=== PATIENT | male | born 1995 | race Caucasian/White ===

== ENCOUNTER 2022-03-28 11:18 | Inpatient (IN) ==
[2022-03-28] MEDS ORDERED: IOPAMIDOL 100 ML BOTTLE IV ONE (11:19)
[2022-03-28] MEDS ORDERED: 0.9 % SODIUM CHLORIDE 1,000 ML IV ONE ×2 (11:31→12:56)
[2022-03-28 11:41] LABS: POC Calcium, Ionized 1.19 (1.16-1.32); POC Creatinine 1.7 (0.6-1.2); POC Potassium 4.2 (3.3-5.1)
--- NOTE | 2022-03-28 11:48 | Emergency Department Note ---
HPI General Chief complaint: Blood Pressure Problem Stated complaint: fentanyl withdrawal Time Seen by Provider: 03/28/22 11:30 Source: patient Mode of arrival: ambulatory Limitations: no limitations History of Present Illness HPI Narrative: Narrative: Patient presents to ED in police custody for concerns about low blood pressure. Patient was arrested earlier this week and is admitted fentanyl user. He has not had any fentanyl since being arrested. They believe he is going through withdrawal. Patient has had diarrhea and chills. They state that they took his blood pressure today and it was in the 80s systolically with a heart rate of 145 so they brought him to the ED to be evaluated. Patient that he just does not feel well. Does not know what is wrong. He states he did not think that fentanyl can do this to him in withdrawal. He reports feeling nauseous and having vomiting. He reports having too numerous to count diarrhea bowel movements. He denies hematemesis, melena, medic easier, abdominal pain, dysuria, hematuria, urinary frequency. Patient denies any other alleviating or aggravating factors. Related Data Allergies Allergy/AdvReac Type Severity Reaction Status Date / Time No Known Drug Allergies Allergy Verified 03/28/22 11:23 Review of Systems ROS ROS Narrative: Narrative: All systems ED: reviewed and negative except as stated. [facility] Narrative Patient History Narrative: Narrative: Medical/Surgical/Family History All Active Problems (Updated 03/28/22 @ 17:11 by Milton Kelly MD) Anemia, normocytic normochromic (Acute) Aspiration pneumonia (Acute) Methamphetamine abuse (Acute) Stage 1 acute kidney injury (Acute) Encounter for medication refill (Acute) Acute dehydration (Acute) Acute kidney injury (Acute) Drug withdrawal (Acute) Sepsis (Acute) Pneumonia involving right lung (Acute) Medical History (Updated 03/28/22 @ 17:11 by Milton Kelly MD) Encounter for medication refill Social History Smoking Status: Current every day smoker Exam Narrative Narrative: Narrative: General Limitations: no limitations General appearance: Present alert Chest Chest: Present normal inspection; Absent tenderness Respiratory Respiratory: Present normal lung sounds bilaterally; Absent respiratory distress Cardiovascular Cardiovascular: Present regular rate and normal rhythm Adbominal Abdominal: Present soft and normal bowel sounds; Absent tenderness Neurological Neurological: Present oriented X3 and normal gait Psychiatric Psychiatric: Present flat affect and poor eye contact Skin Skin: Present warm (WNL) and intact Course Course Course Narrative: Patient was evaluated for low blood pressure and tachycardic. Patient arrived his blood pressure was in the 90s systolically and he was slightly tachycardic. Patient clinically looked dry. He was bolused IV fluids x2 L. His blood pressure improved up to 120 systolically and his heart rate came down below 100. Labs show that patient had acute kidney injury with elevated BUN and creatinine suggestive of dehydration. He could not provide us a stool sample and had no d iarrhea bowel movement while he was here. UA was unremarkable. Repeat creatinine showed improvement after the fluids. Patient's heart rate continued to be tachycardic so chest x-ray was obtained with image reviewed myself which revealed concern for right-sided pneumonia. Patient's white cell count was also elevated his procalcitonin was extremely elevated. CT of the chest was obtained and showed that patient had extensive pneumonia in his right upper middle and lower lung. Patient does meet sepsis criteria with tachycardia, leukocytosis and source of infection. Blood cultures were obtained and patient was given IV Zosyn and vancomycin. Patient's blood pressure was initially doing much better but then started dropping again as low as upper 80s systolically. Recommend that patient be admitted to hospitalist service for sepsis secondary to pneumonia. Patient also has acute kidney injury. See mention but that did improve with the fluids. Unfortunate lactic acid was not obtained prior to fluids being administered. Case discussed with hospitalist Who was agreed to admit the patient. Reevaluation(s) Reevaluation #1: Patient remains hemodynamically stable. No new complaints at this time Time: 12:45 Consultations Consultation #1: Case discussed with hospitalist who has agreed to admit the patient. Time: 16:35 Vital Signs Vital signs: Vital Signs Temperature 97.1 F 03/28/22 11:19 Pulse Rate 101 H 03/28/22 11:19 Respiratory Rate 20 03/28/22 11:19 Blood Pressure 104/66 03/28/22 11:19 Pulse Oximetry (%) 97 03/28/22 11:19 Oxygen Delivery Method 03/28/22 11:19 Temperature 101.3 F H 03/28/22 17:54 Pulse Rate 93 H 03/28/22 17:54 Respiratory Rate 14 03/28/22 17:54 Blood Pressure 112/76 03/28/22 17:54 Pulse Oximetry (%) 93 03/28/22 17:54 Oxygen Delivery Method 03/28/22 17:54 MDM MDM Narrative Medical decision making narrative: Narrative: Differential Diagnosis Differential Diagnosis: Dehydration, fentanyl withdrawal, viral illness Medical Records Medical records reviewed: Yes I reviewed the patient's medical records. Lab Data Lab results reviewed: Yes I reviewed the patient's lab results. Result diagrams: 03/28/22 11:37 Labs: Lab Results 03/28/22 03/28/22 03/28/22 Range/Units 11:37 11:38 13:26 WBC 13.8 H (4.5-11.0) K/mcL RBC 4.22 L (4.63-6.08) M/mcL Hgb 12.4 L (13.7-17.5) g/dL Hct 36.5 L (40.1-51.0) % POC Hct 40.0 L (41-55) MCV 86.5 (80.0-100.0) fL MCH 29.4 (26.0-34.0) pg MCHC 34.0 (31.0-36.0) g/dL RDW 11.9 (11.5-14.5) % Plt Count 259 (140-440) K/mcL MPV 10.3 (8.8-12.5) fL Immature Gran % (Auto) 1.5 H (0.0-0.5) % Neut % (Auto) 92.2 H (38.0-78.0) % Lymph % (Auto) 3.7 L (15.5-49.0) % [place] % (Auto) 1.9 (1.0-12.0) % Eos % (Auto) 0.1 (0.0-7.0) % Baso % (Auto) 0.6 (0.0-2.0) % Lymph # (Auto) 0.51 L (1.50-4.80) K/mcL [place] # (Auto) 0.26 (0.10-0.90) K/mcL Eos # (Auto) 0.01 (0.00-0.70) K/mcL Baso # (Auto) 0.08 (0.00-0.30) K/mcL Immature Gran # 0.21 H (0.00-0.05) K/mcl Absolute Neutrophils 12.71 H (1.80-8.00) K/mcL POC VBG pH (7.32-7.42) POC VBG pCO2 at Temp (41-51) POC VBG pO2 (25-40) POC VBG HCO3 (24-28) POC VBG Total CO2 (25-29) POC Venous O2 Sat (40-70) POC VBG Base Excess (-2-2) VBG Lactic Acid (0.5-2) POC Sodium 135 (133-145) POC Potassium 4.2 (3.3-5.1) POC Chloride 101 (96-108) POC Total CO2 23.0 (22-30) POC BUN 38 H (6-20) POC Creatinine 1.7 H (0.6-1.2) POC Glucose 120 H (70-105) POC WB Ioniz Calcium 1.19 (1.16-1.32) Procalcitonin 20.53 H (<0.10) ng/mL 03/28/22 03/28/22 Range/Units 13:56 16:53 WBC (4.5-11.0) K/mcL RBC (4.63-6.08) M/mcL Hgb (13.7-17.5) g/dL Hct (40.1-51.0) % POC Hct (41-55) MCV (80.0-100.0) fL MCH (26.0-34.0) pg MCHC (31.0-36.0) g/dL RDW (11.5-14.5) % Plt Count (140-440) K/mcL MPV (8.8-12.5) fL Immature Gran % (Auto) (0.0-0.5) % Neut % (Auto) (38.0-78.0) % Lymph % (Auto) (15.5-49.0) % [place] % (Auto) (1.0-12.0) % Eos % (Auto) (0.0-7.0) % Baso % (Auto) (0.0-2.0) % Lymph # (Auto) (1.50-4.80) K/mcL [place] # (Auto) (0.10-0.90) K/mcL Eos # (Auto) (0.00-0.70) K/mcL Baso # (Auto) (0.00-0.30) K/mcL Immature Gran # (0.00-0.05) K/mcl Absolute Neutrophils (1.80-8.00) K/mcL POC VBG pH 7.43 H (7.32-7.42) POC VBG pCO2 at Temp 32.0 L (41-51) POC VBG pO2 53 H (25-40) POC VBG HCO3 21.4 L (24-28) POC VBG Total CO2 22.0 L (25-29) POC Venous O2 Sat 89.0 H (40-70) POC VBG Base Excess -3.0 L (-2-2) VBG Lactic Acid 1.2 (0.5-2) POC Sodium (133-145) POC Potassium (3.3-5.1) POC Chloride (96-108) POC Total CO2 (22-30) POC BUN (6-20) POC Creatinine 1.0 (0.6-1.2) POC Glucose (70-105) POC WB Ioniz Calcium (1.16-1.32) Procalcitonin (<0.10) ng/mL ED POC Tests ED POC Tests: HARMONY - Influenza A Negative HARMONY - Influenza B Negative HARMONY - SARS Antigen Negative Core Measures AMI Core Measures Followed: Yes Discharge Plan Patient/Caregiver Discharge Instructions 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 only: No Clinical Impression: Acute dehydration, Acute kidney injury Sepsis Qualifiers: Sepsis type: sepsis due to unspecified organism Sepsis acute organ dysfunction status: with acute organ dysfunction Severe sepsis acute organ dysfunction type: acute renal failure Acute renal failure type: unspecified Severe sepsis shock status: without septic shock Qualified Code(s): A41.9 - Sepsis, unspecified organism Drug withdrawal Qualifiers: Substance type: other psychostimulant Qualified Code(s): F15.93 - Other stimulant use, unspecified with withdrawal Pneumonia involving right lung Qualifiers: Pneumonia type: due to unspecified organism Lung location: unspecified part of lung Qualified Code(s): J18.9 - Pneumonia, unspecified organism Activity: resume usual activities as tolerated Patient Disposition: Xfer As Outpt/Obs ([facility]) Condition: Good Discharge Date/Time: 03/28/22 17:34
[2022-03-28 13:14] LABS: Basophils # (Auto) 0.08 K/mcL (0.00-0.30); Basophils % (Auto) 0.6 % (0.0-2.0); Eosinophils # (Auto) 0.01 K/mcL (0.00-0.70); Eosinophils % (Auto) 0.1 % (0.0-7.0); Hematocrit 36.5 % (40.1-51.0); Hemoglobin 12.4 g/dL (13.7-17.5); Lymphocytes # (Auto) 0.51 K/mcL (1.50-4.80); Lymphocytes % (Auto) 3.7 % (15.5-49.0); Mean Cell Volume 86.5 fL (80.0-100.0); Mean Platelet Volume 10.3 fL (8.8-12.5); Monocytes # (Auto) 0.26 K/mcL (0.10-0.90); Monocytes % (Auto) 1.9 % (1.0-12.0); Platelet Count 259 K/mcL (140-440); RBC 4.22 M/mcL (4.63-6.08); Red Cell Distribution Width 11.9 % (11.5-14.5); WBC 13.8 K/mcL (4.5-11.0)
[2022-03-28 13:18] LABS: Neutrophils % (Auto) 92.2 % (38.0-78.0)
--- NOTE | 2022-03-28 14:31 | XRay Report ---
INDICATION: sepsis TECHNIQUE: AP portable supine chest x-ray COMPARISON: None FINDINGS: Lungs:Negative left lung. Extensive right lung infiltrate with dense opacification of the right upper hemithorax. Findings may be secondary to severe pneumonia. Malignancy is possible. Chest CT scan may be helpful for further evaluation. Heart, vascular:No significant cardiomegaly. Pulmonary vascularity is normal. No pulmonary edema or pulmonary congestion Mediastinum, javi:No mediastinal widening. No hilar mass Pleura:No pleural fluid. No pleural-based mass or calcification Skeletal:Negative. IMPRESSION: 1. Extensive right lung infiltrate and opacification of the right upper hemithorax 2. Findings may be due to severe infection although right upper lobe malignancy is possible 3. Chest CT scan recommended Interpreted and Authenticated by: Graham Obregon 03/28/22
[2022-03-28] MEDS ORDERED: cefTRIAXone 2 GM in DEXTROSE 5% IN WATER 50 ML IV ONE (14:35)
[2022-03-28] MEDS ORDERED: VANCOMYCIN 1,000 MG in 0.9 % SODIUM CHLORIDE 250 ML IV SCH (14:45)
--- NOTE | 2022-03-28 15:49 | Cat Scan Report ---
INDICATION: sepsis COMPARISON: Chest x-ray dated 03/28/2022 TECHNIQUE: Axial contrast enhanced images through the chest. Sagittally and coronally reformatted images. MIP reformatted images. 70ml Isovue 370 injected intravenously. FINDINGS: Lungs:Negative left lung. No pulmonary parenchymal infiltrate or mass. No centrilobular or paraseptal emphysema. Dense consolidation involving almost entire right upper lobe and right middle lobe. There is perihilar right lower lobe consolidation. This dense infiltrate is somewhat expansile. There are air bronchograms. No evidence for malignancy. Findings are consistent with infection. Bacterial pneumonias including klebsiella pneumonia. There is no cavitating abnormality. No discrete abscess. No detectable endobronchial lesion. No foreign body. Mediastinum, vascular:Normal thoracic aorta. No thoracic aortic aneurysm or dissection. No pathologic mediastinal or hilar lymphadenopathy Main pulmonary artery measures 3.1 cm in cross-sectional diameter. This may indicate pulmonary arterial hypertension. Main pulmonary artery, right pulmonary artery, left pulmonary artery are negative. No intraluminal filling defects. No lobar or segmental emboli. Heart:No cardiomegaly. No pericardial effusion. No significant coronary artery calcification Pleura:No significant pleural effusion. No pleural-based mass or calcification Axilla, supraclavicular regions, chest wall:No pathologic axillary or supraclavicular adenopathy. Musculoskeletal:No thoracic compression fracture or lytic lesion. No sternal or rib lesion Upper Abdomen:The spleen is not imaged in its entirety. It measures approximately 13 cm in AP dimension consistent with mild splenomegaly. Craniocaudal dimension is not assessed IMPRESSION: 1. Dense consolidation in the right upper lobe, right middle lobe, and portion of the right lower lobe 2. Consolidation is somewhat expansile consistent with bacterial pneumonia including klebsiella pneumonia 3. No cavitating lesion. No lung abscess. 4. No pleural fluid. There is no empyema 5. Mildly enlarged main pulmonary artery. Pulmonary vasculature is otherwise negative without pulmonary embolism 6. No endobronchial abnormality 7. Probable splenomegaly The exam was performed using radiation dose optimization techniques including, but not limited to, automated exposure control, adjustment of the mA and/or kV according to patient size and use of iterative reconstruction technique. Interpreted and Authenticated by: Graham Obregon 03/28/22
--- NOTE | 2022-03-28 17:15 | Internal Med History&Physical ---
HPI History of Present Illness Patient information: Note initiated : 03/28/22 at 5:06 pm Service Date, if different from initiated Date: [] Patient: Clark Rodriguez a 26 y/o M admitted on for fentanyl withdrawal. Chief Complaint: [low blood pressure] Chief complaint: low blood pressure History of present illness: Mr. Rodriguez is a 26 year old M meth abuser, arrested 2 days ago for drug related offenses, found to have low blood pressure in the group home today, so he was being sent to our ED for further evaluations. White count found to be elevated to 13.8, procalcitonin elevated 20.53, lactic acid 1.2, BUN and creatinine 38 and 1.7, respectively with BUN over creatinine ratio of 22. Chest x-ray and CT angiogram of the chest showing right upper middle and lower lobe infiltrates consistent with pneumonia. Joann negative. Patient is on room air. Latest blood pressure s/p IV fluid bolus was 101/74 mmHg, tachycardia with HR 106. Patient is complaining of epigastric abdominal pain with deep breath. He is complaining of shortness of breath. He is coming of cough. He denies any respiratory symptoms. He is complain of subjective fever and shaking chills but denies any diaphoresis. Constitutional Constitutional: Present chills and fever(s); Absent excessive sweating, fatigue or weakness EENT Eyes: Absent blurry vision, change in vision, loss of vision or other visual disturbances Ears: Absent decreased hearing or tinnitus Nose, mouth and throat: Absent abnormal hearing, dry mouth, headache(s), nasal congestion or sore throat Cardiovascular Cardiovascular: Absent chest pain, chest pain at rest, edema, irregular heart rhythm or palpatations Respiratory Respiratory: Present cough and dyspnea; Absent wheezing Gastrointestinal Gastrointestinal: Present abdominal pain; Absent constipation, diarrhea, nausea or vomiting Musculoskeletal Musculoskeletal: Absent back pain, deformity, limited range of motion, muscle cramps, muscle weakness or numbness Integumentary Integumentary: Absent lesions, rash or wounds Neurological Neurological: Absent focal weakness, headache(s) or numbness Psychiatric Psychiatric: Absent anxiety, depression or hallucinations PFSH PFSH All Active Problems (Updated 03/28/22 @ 17:11 by Milton Kelly MD) Anemia, normocytic normochromic (Acute) Aspiration pneumonia (Acute) Methamphetamine abuse (Acute) Stage 1 acute kidney injury (Acute) Encounter for medication refill (Acute) Acute dehydration (Acute) Acute kidney injury (Acute) Drug withdrawal (Acute) Sepsis (Acute) Pneumonia involving right lung (Acute) Medical History (Updated 03/28/22 @ 17:11 by Milton Kelly MD) Encounter for medication refill Social History (Updated 06/13/17 @ 09:02 by Juanita Robin DO) smoking status: Current every day smoker MEDS/ALLERGIES Home Medications and Allergies Allergies Allergy/AdvReac Type Severity Reaction Status Date / Time No Known Drug Allergies Allergy Verified 03/28/22 11:23 EXAM Constitutional Vitals: Temp Pulse Resp BP Pulse Ox O2 Del Method 36.2 C 106 H 20 101/74 93 03/28/22 11:19 03/28/22 16:39 03/28/22 11:19 03/28/22 16:39 03/28/22 16:39 03/28/22 11:19 General appearance: cooperative, disheveled and mild distress Head Head exam: Present atraumatic and normocephalic Eye Eye exam: Present EOMI and PERRL ENT ENT exam: Present mucous membranes moist, normal exam and normal external ear exam Neck Neck exam: Present normal inspection; Absent lymphadenopathy, tenderness or thyromegaly Respiratory Respiratory exam: Absent accessory muscle use, respiratory distress or wheezes Cardiovascular Cardiovascular exam: Present tachycardia; Absent JVD GI/Abdominal GI/Abdominal exam: Present normal bowel sounds and soft; Absent organomegaly or tenderness Rectal Rectal exam: Present deferred Extremities Exam Extremities exam: Present full ROM, normal capillary refill and normal inspection; Absent tenderness Neurological Exam Neurological exam: Present alert, CN II-XII intact and oriented X3; Absent motor sensory deficit Psychiatric Psychiatric exam: Present normal affect and normal mood; Absent anxious or depressed Skin Skin exam: Present dry and intact DATA Data Completed and Pending Labs: Labs from last 24 hours 03/28/22 03/28/22 03/28/22 16:53 13:56 13:26 WBC RBC Hgb Hct POC Hct MCV MCH MCHC RDW Plt Count MPV Immature Gran % (Auto) Neut % (Auto) Lymph % (Auto) [place] % (Auto) Eos % (Auto) Baso % (Auto) Lymph # (Auto) [place] # (Auto) Eos # (Auto) Baso # (Auto) Immature Gran # Absolute Neutrophils POC VBG pH 7.43 H POC VBG pCO2 at Temp 32.0 L POC VBG pO2 53 H POC VBG HCO3 21.4 L POC VBG Total CO2 22.0 L POC Venous O2 Sat 89.0 H POC VBG Base Excess -3.0 L VBG Lactic Acid 1.2 POC Sodium POC Potassium POC Chloride POC Total CO2 POC BUN POC Creatinine 1.0 POC Glucose POC WB Ioniz Calcium Procalcitonin 20.53 H 03/28/22 03/28/22 11:38 11:37 WBC 13.8 H RBC 4.22 L Hgb 12.4 L Hct 36.5 L POC Hct 40.0 L MCV 86.5 MCH 29.4 MCHC 34.0 RDW 11.9 Plt Count 259 MPV 10.3 Immature Gran % (Auto) 1.5 H Neut % (Auto) 92.2 H Lymph % (Auto) 3.7 L [place] % (Auto) 1.9 Eos % (Auto) 0.1 Baso % (Auto) 0.6 Lymph # (Auto) 0.51 L [place] # (Auto) 0.26 Eos # (Auto) 0.01 Baso # (Auto) 0.08 Immature Gran # 0.21 H Absolute Neutrophils 12.71 H POC VBG pH POC VBG pCO2 at Temp POC VBG pO2 POC VBG HCO3 POC VBG Total CO2 POC Venous O2 Sat POC VBG Base Excess VBG Lactic Acid POC Sodium 135 POC Potassium 4.2 POC Chloride 101 POC Total CO2 23.0 POC BUN 38 H POC Creatinine 1.7 H POC Glucose 120 H POC WB Ioniz Calcium 1.19 Procalcitonin A/P Assessment and plan (1) Acute dehydration: Status: Acute (2) Stage 1 acute kidney injury: Status: Acute (3) Methamphetamine abuse: Status: Acute (4) Aspiration pneumonia: Status: Acute (5) Sepsis: Status: Acute Qualifiers: Acute renal failure type: unspecified Sepsis acute organ dysfunction status: with acute organ dysfunction Sepsis type: sepsis due to unspecified organism Severe sepsis acute organ dysfunction type: acute renal failure Severe sepsis shock status: without septic shock Qualified Code(s): A41.9 - Sepsis, unspecified organism; R65.20 - Severe sepsis without septic shock; N17.9 - Acute kidney failure, unspecified (6) Anemia, normocytic normochromic: Status: Acute Narrative A/P Narrative: Assessment and Plans: 1. Aspiration pneumonia with clinical sepsis: Inpatient med surg Blood culture Sputum culture cbc w/ auto diff in the morning to trend WBC Supplemental oxygen to keep spo2>=92% s/p IV fluid bolus given in the ED, to be followed by NS@100cc/hr Kranthi Harristhromaarnol Speech therapy swallowing evaluation 2. Stage 1 acute kidney injury: Avoid any nephrotoxic agents s/p IV fluid bolus given in the ED, to be followed by NS@100cc/hr CMP in the morning to trend kidney functions 3. Dehydration: BUN/Cr ratio of 22 s/p IV fluid bolus given in the ED, to be followed by NS@100cc/hr 4. Methamphetamine abuse: Continue to monitor for any associated symptoms GI ppx: not currently indicated DVT ppx: Lovenox Code status: Full Prognosis: guarded Disposition: inpatient med surg Time Spent With Patient Time: Total time spent is greater than 50% in coordination of care (as documented) at patient's floor/unit and/or counseling patient: Total time spent with greater than 50% in coordination of care (as documented) at patient's floor/unit and/or counseling patient:: 50 - 70 minutes
[2022-03-28] MEDS ORDERED: traZODone HCL 50 MG TABLET PO PRN (17:56)
[2022-03-28] MEDS ORDERED: cefTRIAXone 1 GM in DEXTROSE 5% IN WATER 50 ML IV SCH (17:56)
[2022-03-28] MEDS ORDERED: ONDANSETRON 4 MG/2 ML VIAL IV PRN (17:56)
[2022-03-28] MEDS ORDERED: IPRATROPIUM/ALBUTEROL 3 ML AMPUL.NEB NEB PRN (17:56)
[2022-03-28] MEDS: 0.9 % SODIUM CHLORIDE 1,000 ML IV SCH (19:01)
[2022-03-28] MEDS: AZITHROMYCIN 500 MG in DEXTROSE 5% IN WATER 250 ML IV SCH (19:01)
[2022-03-28] MEDS: ACETAMINOPHEN 325 MG TABLET PO PRN (20:26)
[2022-03-28] MEDS: DOCUSATE SODIUM 100 MG CAPSULE PO SCH (20:40)
[2022-03-28] MEDS: SENNOSIDES 1 TABLET PO SCH (20:41)
[2022-03-28] MEDS: 0.9 % SODIUM CHLORIDE 10 ML SYRINGE IV SCH (20:41)
[2022-03-28] MEDS ORDERED: MELATONIN 3 MG TABLET PO PRN (21:00)
[2022-03-29] MEDS: ACETAMINOPHEN 325 MG TABLET PO PRN (03:32)
[2022-03-29] MEDS: 0.9 % SODIUM CHLORIDE 1,000 ML IV SCH ×2 (05:51→15:55)
[2022-03-29] MEDS: 0.9 % SODIUM CHLORIDE 10 ML SYRINGE IV SCH ×3 (06:05→21:06)
[2022-03-29 06:29] LABS: Basophils # (Auto) 0.03 K/mcL (0.00-0.30); Basophils % (Auto) 0.2 % (0.0-2.0); Eosinophils # (Auto) 0.02 K/mcL (0.00-0.70); Eosinophils % (Auto) 0.2 % (0.0-7.0); Hematocrit 31.3 % (40.1-51.0); Hemoglobin 10.9 g/dL (13.7-17.5); Lymphocytes # (Auto) 0.57 K/mcL (1.50-4.80); Lymphocytes % (Auto) 4.4 % (15.5-49.0); Mean Cell Volume 84.4 fL (80.0-100.0); Mean Corpuscular HGB Conc 34.8 g/dL (31.0-36.0); Mean Platelet Volume 9.5 fL (8.8-12.5); Monocytes # (Auto) 0.27 K/mcL (0.10-0.90); Monocytes % (Auto) 2.1 % (1.0-12.0); Neutrophils % (Auto) 90.4 % (38.0-78.0); Platelet Count 282 K/mcL (140-440); RBC 3.71 M/mcL (4.63-6.08); WBC 12.8 K/mcL (4.5-11.0)
[2022-03-29 06:50] LABS: ALT/SGPT 25 U/L (<40); AST/SGOT 38 U/L (<40); Albumin 2.2 gm/dL (3.2-5.2); Albumin/Globulin Ratio 0.8 (1.0-2.3); Alkaline Phosphatase 103 U/L (39-117); Bilirubin,Total 0.3 mg/dL (0.1-1.0); Blood Urea Nitrogen 27 mg/dL (6-20); Calcium 8.3 mg/dL (8.6-10.4); Carbon Dioxide 24 mmol/L (22-30); Chloride 107 mmol/L (96-108); Globulin 2.7 gm/dL (2.2-3.7); Glomerular Filtration Rate 104; Glucose 115 mg/dL (70-105)
[2022-03-29] MEDS: cefTRIAXone 1 GM VIAL IV SCH (08:36)
[2022-03-29] MEDS: ENOXAPARIN 40 MG/0.4 ML SYRINGE SQ SCH (08:36)
[2022-03-29] MEDS: DOCUSATE SODIUM 100 MG CAPSULE PO SCH ×2 (08:39→21:07)
[2022-03-29] MEDS: AZITHROMYCIN 500 MG in DEXTROSE 5% IN WATER 250 ML IV SCH (09:52)
[2022-03-29] MEDS: IBUPROFEN 600 MG TABLET PO PRN ×2 (11:15→21:05)
--- NOTE | 2022-03-29 11:24 | Internal Med Progress Note ---
SUBJECTIVE Subjective Patient information: Note initiated : 03/29/22 at 11:19 am Service Date, if different from initiated Date: [] Patient: Clark Rodriguez a 26 y/o M admitted on 03/28/22 for fentanyl withdrawal. Chief Complaint: [] Interval history: Mr. Rodriguez is a 26 year old M meth abuser, arrested 2 days ago for drug related offenses, found to have low blood pressure in the nursing home today, so he was being sent to our ED for further evaluations. White count found to be elevated to 13.8, procalcitonin elevated 20.53, lactic acid 1.2, BUN and creatinine 38 and 1.7, respectively with BUN over creatinine ratio of 22. Chest x-ray and CT angiogram of the chest showing right upper middle and lower lobe infiltrates consistent with pneumonia. Joann negative. Patient is on room air. Latest blood pressure s/p IV fluid bolus was 101/74 mmHg, tachycardia with HR 106. Patient is complaining of epigastric abdominal pain with deep breath. He is co mplaining of shortness of breath. He is coming of cough. He denies any respiratory symptoms. He is complain of subjective fever and shaking chills but denies any diaphoresis. 03/29: High grade fever Tmax 39.2 overnight. Currently on room air. He is complain of mild shortness of breath. He denies any cough or wheezing. He is coming of right-sided lateral chest pain. He is complain of subjective fever, chills, and diaphoresis. Supplemental oxygen therapy as needed. Continue empiric antibiotics with Rocephin and azithromycin while awaiting blood and sputum culture results. Speech therapy swallowing evaluations for diet recommendations. Constitutional Vitals: Vital Signs Temp Pulse Resp BP Pulse Ox O2 Del Method 37.1 C 72 28 H 118/73 94 03/29/22 08:00 03/29/22 08:00 03/29/22 08:00 03/29/22 08:00 03/29/22 08:00 03/29/22 08:00 Period Temp Pulse Resp BP Sys/Grossman Pulse Ox O2 Del Method O2 Flow Rate Last 24 Hr 36.5 C-39.2 C 72-113 14-40 87-118/44-76 90-97 Room Air-Room Air Intake and Output 03/28/22 03/29/22 03/29/22 21:59 05:59 13:59 Intake Total 550 1900 Output Total 750 650 Balance -200 1250 Weight 76.612 kg Intake & Output: Intake & Output 03/28/22 03/29/22 03/29/22 21:59 05:59 13:59 Intake Total 550 1900 Output Total 750 650 Balance -200 1250 Weight 76.612 kg Intake: IV 550 1000 Sodium Chloride 0.9% 1,000 ml @ 1000 100 mls/hr IV .Q10H [facility] Rx#: [id number] Zithromax 500 mg In Dextrose 5% 250 in Water 250 ml @ 250 mls/hr IV Q24H [facility] Rx#:[id number] Vancomycin 1,000 mg In Sodium 250 Chloride 0.9% 250 ml @ 250 mls/ hr IV PREOP [facility] Rx#:[id number] Rocephin 2 gm In Dextrose 5% in 50 Water 50 ml @ 100 mls/hr IV ONCE ONE Rx#:[id number] Oral 900 Output: Void Amount 750 650 Other: Meal jelly sandwich Percent of Meal Consumed 85% Feeding Ability Independent Urine Appearance Clear Urine Color Dark Yellow General appearance: disheveled Head Head exam: Present atraumatic and normal inspection Eye Eye exam: Present normal appearance ENT ENT exam: Present mucous membranes moist, normal exam and normal external ear exam Neck Neck exam: Present normal inspection Respiratory Respiratory exam: Present decreased breath sounds Cardiovascular Cardiovascular exam: Present normal rate and rhythm GI/Abdominal GI/Abdominal exam: Present normal bowel sounds Back Exam Back exam: Present normal inspection Neurological Exam Neurological exam: Present alert and oriented X3 Skin Skin exam: Present intact and warm OBJ DATA Labs CBC & Chem 7: 03/29/22 05:21 03/29/22 05:20 Labs: Abnormal Lab Results 03/29/22 03/29/22 03/28/22 05:21 05:20 16:53 WBC 12.8 H RBC 3.71 L Hgb 10.9 L Hct 31.3 L POC Hct Immature Gran % (Auto) 2.7 H Neut % (Auto) 90.4 H Lymph % (Auto) 4.4 L Lymph # (Auto) 0.57 L Immature Gran # 0.34 H Absolute Neutrophils 11.58 H POC VBG pH 7.43 H POC VBG pCO2 at Temp 32.0 L POC VBG pO2 53 H POC VBG HCO3 21.4 L POC VBG Total CO2 22.0 L POC Venous O2 Sat 89.0 H POC VBG Base Excess -3.0 L POC BUN BUN 27 H POC Creatinine Glucose 115 H POC Glucose Calcium 8.3 L Total Protein 4.9 L Albumin 2.2 L Albumin/Globulin Ratio 0.8 L Procalcitonin 03/28/22 03/28/22 03/28/22 13:26 11:38 11:37 WBC 13.8 H RBC 4.22 L Hgb 12.4 L Hct 36.5 L POC Hct 40.0 L Immature Gran % (Auto) 1.5 H Neut % (Auto) 92.2 H Lymph % (Auto) 3.7 L Lymph # (Auto) 0.51 L Immature Gran # 0.21 H Absolute Neutrophils 12.71 H POC VBG pH POC VBG pCO2 at Temp POC VBG pO2 POC VBG HCO3 POC VBG Total CO2 POC Venous O2 Sat POC VBG Base Excess POC BUN 38 H BUN POC Creatinine 1.7 H Glucose POC Glucose 120 H Calcium Total Protein Albumin Albumin/Globulin Ratio Procalcitonin 20.53 H Meds: Medications Acetaminophen (Acetaminophen 325 Mg Tablet) 650 mg PO Q6HP PRN; Protocol PRN Reason: Per Pain Protocol/Fever > 101 Last Admin: 03/29/22 03:32 Dose: 650 mg Albuterol/Ipratropium (Ipratropium/Albuterol 3 Ml Ampul.Neb) 3 ml NEB Q4HRT PRN PRN Reason: Wheezing Ceftriaxone Sodium (Ceftriaxone 1 Gm Vial) 1 gm IV Q24H [facility] Last Admin: 03/29/22 08:36 Dose: 1 gm Docusate Sodium (Docusate Sodium 100 Mg Capsule) 100 mg PO BID [facility] Last Admin: 03/29/22 08:39 Dose: Not Given Enoxaparin Sodium (Enoxaparin 40 Mg/0.4 Ml Syringe) 40 mg SQ DAILY [facility] Last Admin: 03/29/22 08:36 Dose: 40 mg Sodium Chloride (Sodium Chloride 0.9%) 1,000 mls @ 100 mls/hr IV .Q10H [facility] Last Admin: 03/29/22 05:51 Dose: 100 mls/hr Azithromycin 500 mg/ Dextrose 250 mls @ 250 mls/hr IV Q24H [facility]; Protocol Stop: 03/30/22 18:55 Last Admin: 03/29/22 09:52 Dose: 250 mls/hr Ibuprofen (Ibuprofen 600 Mg Tablet) 600 mg PO Q6HP PRN; Protocol PRN Reason: PAIN/FEVER > 101 Last Admin: 03/29/22 11:15 Dose: 600 mg Melatonin (Melatonin 3 Mg Tablet) 3 mg PO HSP PRN PRN Reason: Insomnia Ondansetron HCl (Ondansetron 4 Mg/2 Ml Vial) 4 mg IV Q6HP PRN PRN Reason: Nausea And Vomiting Senna (Sennosides 1 Tablet) 2 tab PO HS [facility] Last Admin: 03/28/22 20:41 Dose: Not Given Sodium Chloride (0.9 % Sodium Chloride 10 Ml Syringe) 10 ml IV Q8 [facility] Last Admin: 03/29/22 06:05 Dose: Not Given A/P Assessment and plan (1) Acute dehydration: Status: Acute (2) Stage 1 acute kidney injury: Status: Acute (3) Methamphetamine abuse: Status: Acute (4) Aspiration pneumonia: Status: Acute (5) Sepsis: Status: Acute Qualifiers: Acute renal failure type: unspecified Sepsis acute organ dysfunction status: with acute organ dysfunction Sepsis type: sepsis due to unspecified organism Severe sepsis acute organ dysfunction type: acute renal failure Severe sepsis shock status: without septic shock Qualified Code(s): A41.9 - Sepsis, unspecified organism; R65.20 - Severe sepsis without septic shock; N17.9 - Acute kidney failure, unspecified (6) Anemia, normocytic normochromic: Status: Acute Narrative A/P Narrative: Assessment and Plans: 1. Aspiration pneumonia with clinical sepsis: Inpatient med surg Blood culture, no growth to date Sputum culture, no growth to date cbc w/ auto diff in the morning to trend WBC Supplemental oxygen to keep spo2>=92% s/p IV fluid bolus given in the ED, to be followed by NS@100cc/hr Kranthi Cordova Speech therapy swallowing evaluation 2. Stage 1 acute kidney injury: Avoid any nephrotoxic agents s/p IV fluid bolus given in the ED, to be followed by NS@100cc/hr CMP in the morning to trend kidney functions 3. Dehydration: BUN/Cr ratio of 27 s/p IV fluid bolus given in the ED, to be followed by NS@100cc/hr 4. Methamphetamine abuse: Continue to monitor for any associated symptoms GI ppx: not currently indicated DVT ppx: Lovenox Code status: Full Prognosis: guarded Disposition: inpatient med surg Time Spent With Patient Time: Total time spent is greater than 50% in coordination of care (as documented) at patient's floor/unit and/or counseling patient: Total time spent with greater than 50% in coordination of care (as documented) at patient's floor/unit and/or counseling patient:: 25 - 35 minutes QUALITY VTE Deep Vein Thrombosis/Pulmonary Embolism Present on Admission: No
[2022-03-29] MEDS: SENNOSIDES 1 TABLET PO SCH (20:45)
[2022-03-30] MEDS: IBUPROFEN 600 MG TABLET PO PRN ×2 (04:15→10:36)
[2022-03-30] MEDS: 0.9 % SODIUM CHLORIDE 10 ML SYRINGE IV SCH (04:22)
[2022-03-30 06:53] LABS: Basophils # (Auto) 0.04 K/mcL (0.00-0.30); Basophils % (Auto) 0.3 % (0.0-2.0); Eosinophils # (Auto) 0.17 K/mcL (0.00-0.70); Eosinophils % (Auto) 1.3 % (0.0-7.0); Hematocrit 33.2 % (40.1-51.0); Hemoglobin 11.3 g/dL (13.7-17.5); Lymphocytes # (Auto) 0.96 K/mcL (1.50-4.80); Lymphocytes % (Auto) 7.1 % (15.5-49.0); Mean Cell Volume 86.2 fL (80.0-100.0); Mean Platelet Volume 9.4 fL (8.8-12.5); Monocytes # (Auto) 0.51 K/mcL (0.10-0.90); Monocytes % (Auto) 3.8 % (1.0-12.0); Neutrophils % (Auto) 83.8 % (38.0-78.0); Platelet Count 324 K/mcL (140-440); RBC 3.85 M/mcL (4.63-6.08); Red Cell Distribution Width 12.3 % (11.5-14.5); WBC 13.5 K/mcL (4.5-11.0)
[2022-03-30 07:32] LABS: ALT/SGPT 27 U/L (<40); AST/SGOT 43 U/L (<40); Albumin/Globulin Ratio 0.6 (1.0-2.3); Alkaline Phosphatase 142 U/L (39-117); Bilirubin,Total 0.2 mg/dL (0.1-1.0); Blood Urea Nitrogen 17 mg/dL (6-20); Calcium 8.4 mg/dL (8.6-10.4); Carbon Dioxide 22 mmol/L (22-30); Chloride 106 mmol/L (96-108); Globulin 3.3 gm/dL (2.2-3.7); Glomerular Filtration Rate 131; Glucose 97 mg/dL (70-105)
--- NOTE | 2022-03-30 10:10 | Discharge Summary ---
Discharge Provider Provider IMPORTANT FOLLOW-UP INFORMATION FOR PCP: Patient information: Note initiated : 03/30/22 at 10:08 am Service Date, if different from initiated Date: [] Patient: Clark Rodriguez a 26 y/o M admitted on 03/28/22 for fentanyl withdrawal. Chief Complaint: [] Date of admission: 03/28/22 17:34 Discharge date: 03/30/22 Primary care physician: Sadaf Schwartz MD Attending physician on admission: Milton Kelly Consults: 03/28/22 Consult to Physician [CONS] Stat Comment: Consulting Provider: Milton Kelly Reason For Exam: Physician to Consult Attending physician on discharge: Milton Kelly COURSE Hospital Course Hospital course: Mr. Rodriguez is a 26 year old M meth abuser, arrested 2 days ago for drug related offenses, found to have [facility] the [facility] today, so he was being sent to our ED for further evaluations. White count found to be elevated to 13.8, procalcitonin elevated 20.53, lactic acid 1.2, BUN and creatinine 38 and 1.7, respectively with BUN over creatinine ratio of 22. Chest x-ray and CT angiogram of the chest showing right upper middle and lower lobe infiltrates consistent with pneumonia. Joann negative. Patient is on room air. Latest blood pressure s/p IV fluid bolus was 101/74 mmHg, tachycardia with HR 106. Patient is complaining of epigastric abdominal pain with deep breath. He is complaining of shortness of breath. He is coming of cough. He denies any respiratory symptoms. He is complain of subjective fever and shaking chills but denies any diaphoresis. 03/29: High grade fever Tmax 39.2 overnight. Currently on room air. He is complain of mild shortness of breath. He denies any cough or wheezing. He is coming of right-sided lateral chest pain. He is complain of subjective fever, chills, and diaphoresis. Supplemental oxygen therapy as needed. Continue empiric antibiotics with Rocephin and azithromycin while awaiting blood and sputum culture results. Speech therapy swallowing evaluations for diet recommendations. 03/30: [facility] back to [facility]. Rx given. He should be evaluated by PCP in 2 weeks. Discharge diagnosis: Aspiration pneumonia. Time Spent with Patient Time attestation: Total time spent providing and/or coordinating discharge services: Time spent: Less than 30 minutes EXAM Constitutional Vitals: Temp Pulse Resp BP Pulse Ox O2 Del Method O2 Flow Rate 36.5 C 78 16 138/81 97 0 03/30/22 07:11 03/29/22 16:00 03/30/22 07:11 03/30/22 07:11 03/30/22 07:11 03/30/22 07:11 03/30/22 04:00 General appearance: cooperative and no acute distress Head Head exam: Present atraumatic and normocephalic Eye Eye exam: Present EOMI and PERRL ENT ENT exam: Present mucous membranes moist, normal exam and normal external ear exam Neck Neck exam: Present normal inspection; Absent lymphadenopathy, tenderness or thyromegaly Respiratory Respiratory exam: Absent accessory muscle use, respiratory distress or wheezes Cardiovascular Cardiovascular exam: Present normal rate and rhythm; Absent JVD GI/Abdominal GI/Abdominal exam: Present normal bowel sounds and soft; Absent organomegaly or tenderness Rectal Rectal exam: Present deferred Extremities Exam Extremities exam: Present full ROM, normal capillary refill and normal inspection; Absent tenderness Neurological Exam Neurological exam: Present alert, CN II-XII intact and oriented X3; Absent motor sensory deficit Psychiatric Psychiatric exam: Present normal affect and normal mood; Absent anxious or depressed Skin Skin exam: Present dry and intact Discharge Data Data Completed and Pending Labs on day of discharge: Labs from last 24 hours 03/30/22 03/30/22 05:24 05:24 WBC 13.5 H RBC 3.85 L Hgb 11.3 L Hct 33.2 L MCV 86.2 MCH 29.4 MCHC 34.0 RDW 12.3 Plt Count 324 MPV 9.4 Immature Gran % (Auto) 3.7 H Neut % (Auto) 83.8 H Lymph % (Auto) 7.1 L [place] % (Auto) 3.8 Eos % (Auto) 1.3 Baso % (Auto) 0.3 Lymph # (Auto) 0.96 L [place] # (Auto) 0.51 Eos # (Auto) 0.17 Baso # (Auto) 0.04 Immature Gran # 0.50 H Absolute Neutrophils 11.34 H Sodium 139 Potassium 3.7 Chloride 106 Carbon Dioxide 22 Anion Gap 11.0 BUN 17 Creatinine 0.7 GFR Calculation 131 Glucose 97 Calcium 8.4 L Total Bilirubin 0.2 AST 43 H ALT 27 Alkaline Phosphatase 142 H Total Protein 5.3 L Albumin 2.0 L Globulin 3.3 Albumin/Globulin Ratio 0.6 L Preliminary micro results at discharge 03/28/22 14:52 Blood Culture - Preliminary Blood 03/28/22 14:45 Blood Culture - Preliminary Blood 03/29/22 11:53 Gram Stain - Preliminary Sputum source - Expectorated Discharge Plan Patient/Caregiver Discharge Instructions Activity: resume usual activities as tolerated Diet: Thickened Liquids Activity Restrictions/Additional Instructions: Follow-up PCP or be reevaluated in 3-5 days Drink plenty of fluids Seek medical attention symptoms worsen Prescriptions: New amoxicillin-pot clavulanate [Augmentin] 500-125 mg tablet 1 tab PO BID Qty: 20 0RF Follow Up Plan Follow up with: PCP, PCP [Other] Sadaf Schwartz MD [Primary Care Provider] - Patient Disposition: Xfer Other Prognosis: Good Rehab Potential: Good I certify that the patient requires SNF services: No Overall status at discharge: patient is progressing back to baseline Discharge Orders: Discharge Order (Routine); Ordered 03/30/22 Ordered By: Milton WALSH VTE Deep Vein Thrombosis/Pulmonary Embolism Present on Admission: No
[2022-03-30] MEDS: cefTRIAXone 1 GM VIAL IV SCH (10:26)
[2022-03-30] MEDS: AZITHROMYCIN 500 MG in DEXTROSE 5% IN WATER 250 ML IV SCH (10:27)
[2022-03-30] MEDS: DOCUSATE SODIUM 100 MG CAPSULE PO SCH (10:27)
[2022-03-30] MEDS: ENOXAPARIN 40 MG/0.4 ML SYRINGE SQ SCH (10:30)
== END 2022-03-30 11:55 | disposition other institution (70) | DRG 871 ==
LOC: ED 11:18 → MEDSUR 17:34
PROVIDERS: ADMIT Internal Medicine; ATTEND Internal Medicine